=== PATIENT | female | born 1950 | race Caucasian/White ===

== ENCOUNTER 2019-09-13 16:15 | Inpatient (IN) ==
[2019-09-13 17:23] LABS: BASO# 0.02 X1000 (0.0-0.2); BASO% 0.2 % (0.0-0.8); EOS% 1.2 % (0.0-10.0); HEMATOCRIT 35.6 % (37.0-47.0); HEMOGLOBIN 12.4 g/dL (12.0-16.0); IMM GRAN# 0.04 X1000 (0.0-0.04); IMM GRAN% 0.5 % (0.0-0.5); LYMPH# 1.55 X1000 (1.2-3.4); LYMPH% 18.4 % (20.5-51.1); MCH 29.5 PG (27-31); MCHC 34.8 g/dL (33-37); MCV 84.6 FL (81-99); MONO# 0.61 X1000 (0.11-0.59); MONO% 7.2 % (1.7-9.3); MPV 9.6 FL (7.4-10.4); NEUT# 6.11 X1000 (1.4-6.5); NEUT% 72.5 % (42.2-75.2); PLT 370 X1000 (130-400); RBC 4.21 XMIL (4.2-5.4); RDW 14.1 % (11.5-14.5); WBC 8.43 X1000 (4.8-10.8)
[2019-09-13 17:48] LABS: ESTIMATED GFR > 60
[2019-09-13] MEDS ORDERED: NS 1,000 ML IV ONE (17:52)
[2019-09-13 17:55] LABS: AGAP 12; ALB/GLOB RATIO 1.5; ALBUMIN 3.9 g/dL (3.5-5.0); ALKALINE PHOSPHATASE 44 U/L (32-104); BUN 8 mg/dL (8-22); CALCIUM 9.1 mg/dL (8.8-10.2); CHLORIDE 84 mmol/L (98-107); COSMO 245; CREATININE 0.7 mg/dL (0.5-0.9); GLUCOSE 109 mg/dL (70-104); GOT 22 U/L (10-30); GPT 7 U/L (10-36); POTASSIUM 3.2 mmol/L (3.5-5.1); SODIUM 122 mmol/L (136-145); TCO2 26 mmol/L (25-35); TOTAL BILIRUBIN 0.71 mg/dL (0.20-1.00); TOTAL PROTEIN 6.5 g/dL (6.3-8.3)
[2019-09-13] MEDS ORDERED: TYLENOL PO PRN (18:22)
[2019-09-13] MEDS ORDERED: ZOFRAN IV PRN (18:22)
--- NOTE | 2019-09-13 18:25 | PROVIDER DOCUMENTATION ---
This chart was entered by Ramiro Vargas Scribe, acting as scribe for Lavon Castrejon MD. HPI-General Adult - General Chief Complaint: Abnormal Lab[s] Stated Complaint: SODIUM LOW Time Seen by Provider: 09/13/19 17:44 Source: patient Allergies/Adverse Reactions: Patient Allergies Allergy/AdvReac Type Severity Reaction Status Date / Time ciprofloxacin [From Cipro] Allergy Intermediate ITCHING Verified 12/08/17 16:49 Home Medications: Home Medication List Medication Instructions Recorded Confirmed Last Taken Type ATORVAstatin [Lipitor] 40 mg PO QHS 12/08/17 12/08/17 12/08/17 08:00 History Aspirin 325 mg PO DAILY 12/08/17 12/08/17 12/08/17 08:00 History Citalopram [Celexa] 20 mg PO DAILY 12/08/17 12/08/17 12/08/17 08:00 History Dronedarone [Multaq] 400 mg PO BID 12/08/17 12/08/17 12/08/17 08:00 History Fenofibrate 160 mg PO DAILY 12/08/17 12/08/17 12/08/17 08:00 History Metoprolol Succinate E.r. [Toprol 25 mg PO DAILY 12/08/17 12/08/17 12/08/17 08:00 History Xl] Ranitidine HCl [Zantac 75] 75 mg PO BID 12/08/17 12/08/17 12/08/17 08:00 History - History of Present Illness -Gen Adult Nature of Presenting Problems: Pt is a 69 yof who presents to the ED with a CC of abnormal labs. Pt reports she was referred to the ED by her PCP for low sodium and potassium. Pt also com plains of mild abdominal pain. Pt reports a hx of HTN, diabetes, and atrial fibrillation. Pt reports being a 1 ppd smoker. Location of Pain/Injury: reports: abdomen Pain Radiation: reports: no radiation Quality of Pain: reports: dull Severity: reports: mild Onset/Duration: reports: 1-3 hours ago Timing: reports: still present Similar Symptoms Previously?: No Recently seen or treated by another doctor?: No Review of Systems - Adult - REVIEW OF SYSTEMS - ADULT Constitutional: reports: see HPI Eyes: reports: no symptoms reported Ears, Nose, Mouth & Throat: reports: no symptoms reported Cardiovascular: reports: no symptoms reported Respiratory: reports: no symptoms reported Gastrointestinal: reports: see HPI, abdominal pain Genitourinary: reports: no symptoms reported Musculoskeletal: reports: no symptoms reported Integumentary: reports: no symptoms reported Neurological: reports: no symptoms reported Psychiatric: reports: no symptoms reported Endocrine: reports: see HPI Hematologic/Lymphatic: reports: no symptoms reported Allergic/Immunologic: reports: no symptoms reported All Other Systems: Reviewed and Negative Past History - Adult - PAST MEDICAL HISTORY-ADULT Review of Records: reports: Old Records Reviewed, Nursing Assessment Review, Medications Reviewed, Social history reviewed & non-contributory. Major Childhood Illnesses: reports: denies history Cardiovascular: reports: A-Fib, HTN Respiratory: reports: denies history Gastrointestinal: reports: denies history Obstetrical/Gynecological: reports: denies history Genitourinary: reports: denies history Musculoskeletal: reports: denies history Neurological: reports: denies history Endocrine/Immune: reports: Diabetes Other Conditions: reports: other cancer (basil cell) - PRIOR SURGERIES/PROCEDURES Surgical/Procedure History: reports: none - IMMUNIZATION STATUS Childhood Immunizations: See Nurse Assessment Flu Vaccine: See Nurse Assessment - FAMILY HISTORY Family History: reviewed, not pertinent - SOCIAL HISTORY Smoking: cigarettes, greater than 1 pack/day Substance Use: none/never, denies Alcohol Use Frequency: never Physical Exam-General - PHYSICAL EXAM-ADULT Initial Vital Signs Reviewed: Yes - CONSTITUTIONAL General Appearance: alert, mild distress - EYES Eyes: PERRL/EOMI - HEAD, EARS, NOSE, MOUTH & THROAT HENMT: normocephalic/atraumatic, moist mucous membranes - NECK Neck: non-tender, full range of motion - RESPIRATORY Respiratory: chest non-tender, lungs clear, normal breath sounds - CARDIOVASCULAR Cardiovascular: normal peripheral pulses, regular rate, rhythm - GASTROINTESTINAL (ABDOMEN) Abdominal Exam: non tender, soft - MUSCULOSKELETAL Extremity: normal range of motion, non-tender - SKIN Integumentary: normal color, warm/dry - NEUROLOGIC Neurologic: grossly normal, no motor/sensory deficits - PSYCHIATRIC Psych/Mental Status: normal mood/affect, normal thought content, normal thought process, oriented x 3 Progress - PLAN OF CARE/RESULTS Progress/Plan/Lab Results: Vital Signs - 8 hr 09/13/19 16:19 09/13/19 17:09 Temperature 97.6 F 97.9 F Pulse Rate 112 H 66 Respiratory Rate 18 Blood Pressure 108/69 O2 Sat by Pulse Oximetry 97 98 Laboratory Results - last 24 hr 09/13/19 09/13/19 17:11 17:11 WBC 8.43 RBC 4.21 Hgb 12.4 Hct 35.6 L MCV 84.6 MCH 29.5 MCHC 34.8 RDW Std Deviation 14.1 Plt Count 370 MPV 9.6 Immature Gran % (Auto) 0.5 Neut % (Auto) 72.5 Lymph % (Auto) 18.4 L [facility] % (Auto) 7.2 Eos % (Auto) 1.2 Baso % (Auto) 0.2 Immature Gran # (Auto) 0.04 Neut # (Auto) 6.11 Lymph # (Auto) 1.55 [facility] # (Auto) 0.61 H Eos # (Auto) 0.10 Baso # (Auto) 0.02 Estimated GFR/1.73 m2 > 60 Orders Category Date Time Status CBC WITH DIFF [HEME] Stat Lab 09/13/19 17:11 Completed CMP [COMPREHENSIVE METABOLIC PANEL] [CHEM] Stat Lab 09/13/19 17:11 Results Result Diagrams: 09/13/19 17:11 09/13/19 17:11 - CONSULTS/PCP/HOSPITALIST Notification #1 *Consult/PCP/Hospitalist*: Hospitalist Time Discussed: 18:15 Consult Disposition: Will see in ED, Admit Departure - Departure Date of Disposition Decision: 09/13/19 Time of Disposition Decision: 18:05 DIAGNOSIS: Hyponatremia, Tobacco abuse Disposition: ADMITTED INPATIENT 09 Certified Medical Emergency: Emergent Condition: Stable Additional Instructions: ED Follow Up Instructions: You have been treated by a care provider in the Emergency Department. These instructions are being provided to you so you can have an understanding of how to care for yourself upon discharge. Upon discharge from the Emergency Department, you are responsible for making arrangements for follow-up care by a physician of your choice. Take all prescribed medications as directed. Return to the Emergency Department immediately for any new or worsening symptoms. You may call the Physician Referral phone number at [phone] to obtain a list of Physicians who are taking new patients. Referrals and Follow-Ups: Lindsey Lantigua MD [Primary Care Provider] - - Critical Care Note This patient required my direct & personal management of CC.: No Attestation - Physician/ CHINO Attestation Patient care was provided by Advanced Practice Provider:: No The physician spent face to face time with patient:: Yes Advanced Practice Provider documentation review:: Supervising physician onsite and consulted in the evaluation and care of this patient. The physician did have a face to face encounter with the patient. This chart was documented by the indicated scribe, (Ramiro Vargas, Florin) and accurately reflects the services I performed and decisions made by me, Lavon Castrejon MD, as attested by the provider's signature.
[2019-09-13 18:37] LABS: URINE SOURCE CLEAN CATCH
[2019-09-13 18:42] LABS: BILIRUBIN URINE NEGATIVE (NEGATIVE); BLOOD URINE SMALL (NEGATIVE); COLOR YELLOW; GLUCOSE URINE NEGATIVE (NEGATIVE); KETONE URINE NEGATIVE (NEGATIVE); LEUKOCYTES URINE NEGATIVE (NEGATIVE); NITRITE URINE NEGATIVE (NEGATIVE); PH URINE 6.5; PROTEIN URINE TRACE mg/dL (NEGATIVE); SP GRAVITY URINE 1.013; TURBIDITY URINE CLEAR (CLEAR); UROBILINOGEN URINE 8 mg/dL (NORMAL)
[2019-09-13 18:46] LABS: UR EPITHELIAL CELLS <10 /HPF (<10); URINE BACTERIA NEGATIVE /HPF; URINE RBC <10 /HPF (<10); URINE WBC <10 /HPF (<10)
[2019-09-13 18:51] LABS: URINE CASTS NONE SEEN; URINE CRYSTALS NONE SEEN; URINE SMALL ROUND CELLS NONE SEEN; URINE YEAST NONE SEEN
--- NOTE | 2019-09-13 19:31 | HISTORY AND PHYSICAL ---
PRIMARY CARE PROVIDER: Lindsey Lantigua M.D. CHIEF COMPLAINT: Low sodium reported by her primary care provider. HISTORY OF PRESENT ILLNESS: Ms. Thelma Barraza is a 69-year-old female with a medical history of GERD, large hiatal hernia and failed Vianca fundoplication, chronic atrial fibrillation but is sinus rhythm, has been on Multaq and aspirin, COPD, hypertension, diabetes mellitus type 2, and chronic hyponatremia. She had an admission back in November of 2017 with the same thing, was sent from her primary care provider at that time. She also had hypo osmolality, but those have been ordered and not resulted yet. There is a possibility that this could be aggravated by her Celexa or her COPD. She has not had a CT of the lungs so we will order that as well. She will be on fluid restrictions for now. No IV fluids. PAST MEDICAL HISTORY: 1. Chronic hyponatremia. 2. Chronic atrial fibrillation but has been in sinus rhythm on Multaq and aspirin. 3. COPD. 4. Hiatal hernia with failed Vianca fundoplication. 5. GERD. 6. Hypertension. 7. Mnire disease. 8. Obstructive sleep apnea without CPAP. 9. Restless legs syndrome. 10. Diabetes mellitus type 2 with stable hemoglobin A1c. 11. Hypertriglyceridemia. SURGICAL HISTORY: 1. Hysterectomy. 2. Lower back surgery. 3. Bladder tack x2. 4. Right ankle surgery. 5. Cholecystectomy. 6. Bilateral cataracts. 7. Skin cancer removed from the nose. 8. History of failed Vianca fundoplication. SOCIAL HISTORY: Smoking since the age of 17 at least 1 pack per day. Denies alcohol or illicit drug use. Lives at home with her of 55 years. FAMILY HISTORY: Mother had pulmonary emboli, diabetes and heart disease. Father had liver cancer and diabetes. Three brothers with myocardial infarctions and stroke. One sister with heart disease and esophageal cancer. ALLERGIES: Ciprofloxacin. HOME MEDICATIONS: 1. Lipitor 40 mg p.o. nightly. 2. Aspirin 325 mg p.o. daily. 3. Celexa 20 mg p.o. daily. 4. Fenofibrate 160 mg p.o. daily. 5. Multaq 40 mg p.o. twice daily. 6. Prilosec 20 mg p.o. daily. 7. Toprol-XL 25 mg p.o. daily. It also looks like she had a brain MRI without contrast that was ordered as an outpatient thing today. It was not performed. REVIEW OF SYSTEMS: Fourteen-point review of systems are complete. All were negative except for those mentioned above in HPI. I will add that she has noticed over the last 2 months she has had worsening memory issues where she would name her grandkids different names that was not even a family name. She felt like when she was at [employer] one time everything been changed around. Her grocery store that she knows very well she could not figure out how the store was laid out. She has occasional dizziness and she also noted that she has had some blood-tinged phlegm and occasionally blows out clots when she blows her nose. She stays cold all the time. She did state that she has been drinking at least a quart or more of fluids per day, not necessarily water, but just drinks, but her mouth stays dry. PHYSICAL EXAMINATION: VITAL SIGNS: Temperature 97.9 degrees, heart rate 60, respiratory rate 15, blood pressure 146/86, O2 saturation 100% on room air. GENERAL: Ms. Thelma Barraza is a 69-year-old female. She is in no acute distress. She is able answer questions appropriately. HEENT: Atraumatic, normocephalic. Pupils equal, round, reactive to light. Extraocular movements intact. Mucous membranes are dry. NECK: Trachea midline. CARDIOVASCULAR: S1, S2. Regular rate and rhythm. No rubs, gallops, murmurs. No lower extremity edema. +2 dorsalis and radial pulses. Negative JVD or carotid bruits. PULMONARY: Clear to auscultation bilateral breath sounds. No accessory muscle use or work of breathing noted. GASTROINTESTINAL: Soft, nontender, nondistended. Positive bowel sounds x4. EXTREMITIES: Moves all extremities equally. Full range of motion. NEUROLOGIC: A and O x3. Follows commands. Sensory is intact. SKIN: Warm, dry, intact. LABORATORY DATA: White blood cells 8000, hemoglobin 12, hematocrit 35, platelet count 370,000. Sodium 122, potassium 3.2, BUN 8, creatinine 0.7, glucose 109, calcium 9.1, magnesium 1.5, bilirubin 0.71, AST 22, ALT 7, albumin 3.9. Urinalysis is pending. Other urine studies are pending. IMAGING: No imaging at this time. ASSESSMENT AND PLAN: 1. Hyponatremia with a history of hyponatremia and hypoosmolality, and I believe she has been ruled out for syndrome of inappropriate antidiuretic hormone secretion in the past. She will have a chest CT this time. She does have some blood-tinged phlegm that she states she coughs up occasionally. Denies any shortness of breath or weight loss. There are really no other complaints. Has the occasional dizziness. She has had some memory deficits over the last 2 months that she has noticed. It is not significant but just intermittently so we will hold on her Celexa as it could be related to that. It could be as a complication of her chronic obstructive pulmonary disease history, but again, we will get a CT of the chest to fully evaluate, make sure there is nothing going on there. 2. History of atrial fibrillation. She is in sinus rhythm. We will continue Multaq and aspirin once she gets her home medications verified. 3. Chronic obstructive pulmonary disease, no exacerbation. 4. Gastrointestinal reflux disease with hiatal hernia and failed Vianca fundoplication. We will continue her proton pump inhibitor when it is reconciled. 5. Anxiety. Hold the Celexa. 6. Diabetes mellitus type 2. Her last hemoglobin A1c was 5.8. Her glucose at this time is 109, and it really looks like her blood glucose levels were normal, so we are just going to do a regular diet and no insulin at this time unless we see her blood glucose levels start to increase. As far as reviewing her home medications, it looks like she is really not on anything for diabetes. 7. Hypertriglyceridemia. Continue fenofibrate. 8. Deep venous thrombosis prophylaxis. Sequential compression devices. Dictated by SANCHEZ Smart for Breezy Bowles MD cc: SANCHEZ Smart Patient sent to the ED by her PCP for worsening of her chronic hyponatremia. patient appears to usually be in the high 120s but down to 122 today. essentially asymptomatic. will fluid restrict, check urine studies, and CT chest to eval for malignancy vs other etiology. hold antidepressant as it could be causing SIADH. MTDD
[2019-09-13] MEDS: MULTAQ PO SCH (22:25)
[2019-09-14] MEDS: LIPITOR PO SCH ×2 (00:37→20:36)
[2019-09-14 06:37] LABS: BASO# 0.02 X1000 (0.0-0.2); BASO% 0.3 % (0.0-0.8); EOS# 0.12 X1000 (0.0-0.7); EOS% 1.8 % (0.0-10.0); HEMATOCRIT 34.4 % (37.0-47.0); HEMOGLOBIN 11.8 g/dL (12.0-16.0); IMM GRAN# 0.02 X1000 (0.0-0.04); IMM GRAN% 0.3 % (0.0-0.5); LYMPH# 1.62 X1000 (1.2-3.4); LYMPH% 24.2 % (20.5-51.1); MCH 29.1 PG (27-31); MCHC 34.3 g/dL (33-37); MCV 84.7 FL (81-99); MONO# 0.67 X1000 (0.11-0.59); MPV 9.7 FL (7.4-10.4); NEUT# 4.25 X1000 (1.4-6.5); NEUT% 63.4 % (42.2-75.2); PLT 331 X1000 (130-400); RBC 4.06 XMIL (4.2-5.4); RDW 13.9 % (11.5-14.5)
[2019-09-14 07:05] LABS: AGAP 14; ALB/GLOB RATIO 1.4; ALBUMIN 3.3 g/dL (3.5-5.0); ALKALINE PHOSPHATASE 38 U/L (32-104); BUN 6 mg/dL (8-22); CALCIUM 8.8 mg/dL (8.8-10.2); CHLORIDE 91 mmol/L (98-107); COSMO 256; CREATININE 0.6 mg/dL (0.5-0.9); ESTIMATED GFR > 60; GLUCOSE 84 mg/dL (70-104); GOT 20 U/L (10-30); GPT 6 U/L (10-36); MAGNESIUM 1.5 mg/dL (1.5-2.7); POTASSIUM 3.2 mmol/L (3.5-5.1); SODIUM 129 mmol/L (136-145); TCO2 24 mmol/L (25-35); TOTAL BILIRUBIN 0.74 mg/dL (0.20-1.00); TOTAL PROTEIN 5.6 g/dL (6.3-8.3)
--- NOTE | 2019-09-14 10:10 | Diag Imaging Result Doc PS360 ---
EXAM: CT THORAX W/CONTRAST HISTORY: Hyponatremia,blood tinged phlegm TECHNIQUE: CT chest with intravenous contrast. COMPARISON: None. FINDINGS: There is a large mass/adenopathy behind the heart measuring at least 7 x 10 x 11 cm. The esophagus is displaced to the left. There are enlarged subcarinal lymph nodes. The mass surrounds and occludes several branches of the right middle and lower lobe bronchial tree. No significant postobstructive atelectasis or infiltrates. Moderate emphysema. No cardiomegaly. No aortic aneurysm or dissection. No large central pulmonary emboli. Tiny right pleural effusion. No left pleural effusion. Limited images through the upper abdomen reveal a nonobstructing right renal stone. IMPRESSION: Large posterior mediastinal mass. A preliminary report was given at 12:26 AM This exam was performed using automated exposure control, adjustment of mA or kV according to patient size, and/or use of iterative reconstruction technique. Electronically signed by Steve Davidson 09/14/2019 10:07 AM
[2019-09-14] MEDS: MULTAQ PO SCH ×2 (10:23→20:37)
[2019-09-14] MEDS: TOPROL XL PO SCH (10:23)
[2019-09-14] MEDS: PRILOSEC PO SCH (10:24)
[2019-09-14] MEDS: LOFIBRA PO SCH (10:24)
[2019-09-14] MEDS: ASPIRIN PO SCH (10:24)
[2019-09-14] MEDS ORDERED: DUONEB (A & A) INH PRN (11:47)
--- NOTE | 2019-09-14 12:03 | PROGRESS NOTE ---
DATE: 09/14/2019 SUBJECTIVE: The patient is resting in bed, not in any obvious distress. OBJECTIVE: Vital Signs: Temperature is 97.6 degrees, pulse 61, blood pressure 153/83, respiratory rate is 14. HEENT: She is atraumatic, normocephalic. She is anicteric. Extraocular muscles intact. No oral lesions. Neck: No lymphadenopathy or thyromegaly. Cardiovascular: S1, S2. Respiratory: Has evidence of good air entry bilaterally. Abdomen: Soft, nontender. No masses felt. Extremities: No evidence of edema. Central Nervous System: No obvious focal deficit noted. IMAGING AND LABORATORY DATA: WBC is 6.7, hematocrit is 34.4, with a platelet count of 331,000. Sodium is 129, potassium 3.2, chloride is 91, bicarb 24, BUN is 6, creatinine 0.6. CT scan of the chest shows a large posterior mediastinal mass measuring about 7 x 10 x 11 cm. There is also a right renal nonobstructing stone. ASSESSMENT AND PLAN: 1. Hyponatremia, probably secondary to syndrome of inappropriate secretion of ADH, which is related to selective serotonin reuptake inhibitors. I believe the patient's selective serotonin reuptake inhibitors is currently discontinued. The patient's sodium level has risen from 122 to 129. The patient will need to be on fluid restriction as well as intravenous fluids. Will also check urine electrolytes, including urine sodium osmolality as well as creatinine. Will check a cortisol level and also TSH level. The patient will also need brain imaging. Will closely follow up on the patient's sodium level. 2. Mediastinal mass. This was noted on chest CT. Will consult with Cardiothoracic team. 3. Nonobstructing right renal stone. The patient does not seem to have any symptoms from this condition. She can follow up with Urology in the outpatient. 4. History of atrial fibrillation. Continue Multaq as well as aspirin. 5. Chronic obstructive pulmonary disease. Nebulized bronchodilators as needed. 6. Gastroesophageal reflux disease. Continue proton pump inhibitor. 7. History of anxiety disorder. Will hold off on Celexa in light of hyponatremia. 8. Diabetes mellitus. Monitor blood sugar levels, and maintain the patient on sliding scale insulin. 9. Hypertriglyceridemia. Continue fenofibrate. 10. Deep vein thrombosis prophylaxis. Sequential compression devices. cc: Hari Golden MD
[2019-09-14] MEDS: NS 1,000 ML IV SCH (13:16)
[2019-09-14] MEDS: DUONEB (A & A) INH SCH ×4 (15:52→23:48)
--- NOTE | 2019-09-14 22:11 | Diag Imaging Result Doc PS360 ---
EXAM: CT HEAD W/O CONTRAST HISTORY: right sided weakness TECHNIQUE: CT head without contrast COMPARISON: None. FINDINGS: No parenchymal hemorrhage. No epidural or subdural hematoma. No subarachnoid hemorrhage. There is a 1.6 x 2.3 cm hypodense area in the left temporal lobe. No mass identified on this noncontrasted exam. No hydrocephalus. No sinus opacification. IMPRESSION: 1.No hemorrhage 2.Likely subacute left temporal infarct This exam was performed using automated exposure control, adjustment of mA or kV according to patient size, and/or use of iterative reconstruction technique. Electronically signed by Steve Davidson 09/14/2019 10:08 PM
[2019-09-15] MEDS: DUONEB (A & A) INH SCH ×6 (03:21→23:26)
[2019-09-15] MEDS: NS 1,000 ML IV SCH ×2 (05:42→22:22)
[2019-09-15 07:59] LABS: BASO# 0.02 X1000 (0.0-0.2); BASO% 0.2 % (0.0-0.8); EOS# 0.06 X1000 (0.0-0.7); EOS% 0.7 % (0.0-10.0); HEMATOCRIT 32.8 % (37.0-47.0); HEMOGLOBIN 11.1 g/dL (12.0-16.0); IMM GRAN# 0.02 X1000 (0.0-0.04); IMM GRAN% 0.2 % (0.0-0.5); LYMPH# 1.33 X1000 (1.2-3.4); LYMPH% 14.6 % (20.5-51.1); MCH 28.9 PG (27-31); MCHC 33.8 g/dL (33-37); MCV 85.4 FL (81-99); MONO# 0.72 X1000 (0.11-0.59); MONO% 7.9 % (1.7-9.3); MPV 10.4 FL (7.4-10.4); NEUT# 6.96 X1000 (1.4-6.5); NEUT% 76.4 % (42.2-75.2); PLT 305 X1000 (130-400); RBC 3.84 XMIL (4.2-5.4); RDW 14.1 % (11.5-14.5); WBC 9.11 X1000 (4.8-10.8)
[2019-09-15 08:15] LABS: AGAP 13; ALB/GLOB RATIO 1.5; ALBUMIN 3.4 g/dL (3.5-5.0); ALKALINE PHOSPHATASE 37 U/L (32-104); BUN 6 mg/dL (8-22); CALCIUM 8.7 mg/dL (8.8-10.2); CHLORIDE 90 mmol/L (98-107); COSMO 255; CREATININE 0.6 mg/dL (0.5-0.9); ESTIMATED GFR > 60; GLUCOSE 97 mg/dL (70-104); GOT 19 U/L (10-30); GPT 6 U/L (10-36); MAGNESIUM 1.5 mg/dL (1.5-2.7); POTASSIUM 3.1 mmol/L (3.5-5.1); SODIUM 128 mmol/L (136-145); TCO2 25 mmol/L (25-35); TOTAL BILIRUBIN 0.73 mg/dL (0.20-1.00); TOTAL PROTEIN 5.7 g/dL (6.3-8.3)
[2019-09-15] MEDS: TOPROL XL PO SCH (09:25)
[2019-09-15] MEDS: PRILOSEC PO SCH (09:25)
[2019-09-15] MEDS: LOFIBRA PO SCH (09:25)
[2019-09-15] MEDS: ASPIRIN PO SCH (09:25)
[2019-09-15] MEDS: MULTAQ PO SCH ×2 (09:25→22:23)
[2019-09-15] MEDS ORDERED: XANAX PO ONE (09:34)
--- NOTE | 2019-09-15 12:00 | CONSULTATION ---
DATE OF CONSULTATION: 09/15/2019 HISTORY OF PRESENT ILLNESS: Ms Thelma Barraza is a 69-year-old white female, patient of Dr. Lindsey Santana. It was noticed that she had significant electrolyte abnormalities, and she was sent to our emergency department on 09/13/2019 for further evaluation. As part of her evaluation, she underwent a chest CT scan, which documented a large posterior mediastinal mass consistent with a lung cancer measuring 11 cm. It seems to involve the right middle and lower lobes. She has admitted to hemoptysis recently. She is a smoker. There was no mention of any liver lesions. She does have emphysema and mild shortness of breath. PAST MEDICAL HISTORY: Atrial fibrillation on Multaq and aspirin. She used to be on Eliquis, but is not taking it now. COPD, Vianca fundoplication, hypertension, diabetes mellitus type 2, hypertriglyceridemia, restless legs syndrome. PAST SURGICAL HISTORY: Hysterectomy, lower back surgery, bladder tack, right ankle surgery, cholecystectomy bilateral cataracts, skin cancer removed from her nose, and Vianca fundoplication. MEDICATIONS: Lipitor, aspirin, Celexa, fenofibrate, Multaq, Prilosec, Toprol-XL. SOCIAL HISTORY: She smokes since she is 17 years of age. Her and family were at the bedside. FAMILY HISTORY: Diabetes, heart disease, liver cancer, esophageal cancer. REVIEW OF SYSTEMS: She feels like her memory is worse over the last 2 months. She has had occasional dizziness. She does admit to some hemoptysis, and she stays cold all the time. PHYSICAL EXAMINATION: General: On exam, Ms. Barraza is a very slim, older white female, getting a breathing treatment. She has mild work of breathing. HEENT and Neck: She has no jaundice. No oral lesions. No cervical or supraclavicular lymphadenopathy. Cardiac: Her heart is irregular. Lungs: Have some expiratory wheezing. Abdomen: Soft without palpable mass. No costovertebral tenderness. Rectal and Vaginal: Exams were not performed. Extremities: She does have palpable femoral pulses. She has no peripheral ischemic changes. Neurological: She has no focal deficits. IMPRESSION: Large posterior mediastinal mass, which seems to involve the right middle and lower lobes of the lung in a chronic smoker. PLAN: Bronchoscopy with biopsy. I do notice that Dr. Mclean was consulted yesterday, and Pulmonary has also been consulted. I will make plans to do this bronchoscopy tomorrow unless Pulmonary wants to proceed. cc: Fabiana Velasquez MD
--- NOTE | 2019-09-15 14:27 | PROGRESS NOTE ---
DATE: 09/15/2019 SUBJECTIVE: Patient resting comfortably in bed. OBJECTIVE: Vital Signs: Temperature 97.8 degrees, pulse 72, respirations 14, blood pressure is 130/79, oxygen saturation 98%. HEENT: Atraumatic, normocephalic. Cardiovascular: S1, S2. Respiratory: Has evidence of good air entry bilaterally. Abdomen: Soft, nontender. No masses felt. Extremities: No evidence of edema. Central Nervous System: No obvious focal deficits noted. IMAGING AND LABORATORY DATA: WBC is 9.11, hematocrit 32.8, with a platelet count of 305,000. Sodium is 128, potassium 3.1, chloride is 90, bicarb 25, BUN is 6, creatinine 0.6. CT scan of the brain shows evidence of likely subacute left temporal infarct. ASSESSMENT AND PLAN: 1. Hyponatremia, likely secondary to syndrome of inappropriate secretion of ADH related to selective serotonin reuptake inhibitors. Sodium level has improved. Continue intravenous normal saline as well as fluid restriction. 2. Probable left temporal lobe cerebrovascular accident. Will obtain an MRI of the brain, carotid Doppler study, 2D echo of the heart. We will hold off on aspirin as the patient is likely to be going for a bronchoscopy. Check lipid panel. Educate the patient on stroke. Place the patient on Lovenox 40 subcutaneously once a day. 3. Mediastinal mass. The patient will probably need bronchoscopy with biopsy (transbronchial biopsy). Surgery and Pulmonology team, as well as Oncology team consulted. 4. Nonobstructing right renal mass. Follow up with Urology in the outpatient. 5. History of atrial fibrillation. Continue multaq and will hold off on aspirin for right now. 6. Chronic obstructive pulmonary disease. Nebulized bronchodilators as needed. 7. Gastroesophageal reflux disease. Continue proton pump inhibitor. 8. History of anxiety disorder. Will discontinue Celexa, and place the patient on a different agent for anxiety. 9. Diabetes mellitus. Continue blood sugar monitoring as well as sliding scale insulin. 10. Hypertriglyceridemia. Continue fenofibrate. 11. Deep vein thrombosis prophylaxis. Lovenox. cc: Hari Golden MD [facility]
--- NOTE | 2019-09-15 16:04 | Diag Imaging Result Doc PS360 ---
EXAM: MRI BRAIN W/O CONTRAST INDICATION: cva COMPARISON: CT head dated 09/14/2019. No prior MRI brain is available for comparison. FINDINGS: There is a complex cystic appearing lesion in the insula on the left that was also seen on the recent CT. There is no internal restricted diffusion. Although there is mild restricted diffusion at its periphery, I suspect this is a metastatic lesion with central necrosis rather than an infarct. It measures 2.8 x 2.1 cm axially. There is a second lesion that is T2/FLAIR hyperintensity in the left cerebellar hemisphere abutting the fourth ventricle. It exhibits increased signal on diffusion with only mild decreased signal on ADC map. This is also likely a metastatic lesion. It measures 1.1 x 1.0 cm axially. There is relatively little vasogenic edema surrounding these lesions, however. Addition of IV contrast and rescanning is recommended within 24 hours if not contraindicated to better evaluate these lesions. No other definite lesion is identified given the limitations of a nonenhanced study. There is mild patchy T2/FLAIR hyperintensity in the periventricular and subcortical white matter suggesting mild microangiopathy. No discrete intracranial hemorrhage is appreciated. The surrounding soft tissues and bony structures are essentially unremarkable. IMPRESSION: Findings suspicious for metastatic lesions in the insular region on the left and the left cerebellar hemisphere. Addition of IV contrast and rescanning is recommended within 24 hours if not contraindicated for better evaluation. Please see above discussion. Electronically signed by Adryan Banerjee 09/15/2019 4:01 PM
--- NOTE | 2019-09-15 17:24 | HEMO/ONC CONSULTATION ---
DATE: 09/15/2019 REASON FOR CONSULTATION: Mediastinal mass. HISTORY OF PRESENT ILLNESS: Ms. Barraza is a 69-year-old female who presented to the ED by her primary care doctor for low sodium and potassium. The patient also complained of abdominal pain, and she was admitted for further workup. She has been admitted for the same thing in the past. The patient is also a smoker, has smoked 1 pack a day for over 50 years. She has had a recent bout of confusion per family members and worsening memory issues. Her family states that she drinks at least a quart or more of fluids a day, as she states that her mouth stays dry. PAST MEDICAL HISTORY: 1. Chronic hyponatremia. 2. Chronic atrial fibrillation on Multaq and aspirin. 3. COPD. 4. Hiatal hernia with failed Vianca fundoplication. 5. GERD. 6. Hypertension. 7. Meniere disease. 8. Obstructive sleep apnea without CPAP. 9. Restless legs syndrome. 10. Diabetes mellitus type 2. 11. Hypertriglyceridemia. PAST SURGICAL HISTORY: 1. Hysterectomy. 2. Low back surgery. 3. Bladder tack x2. 4. Right ankle surgery. 5. Cholecystectomy. 6. Bilateral cataracts. 7. Skin cancer removed from the nose. 8. History of failed Vianca fundoplication. SOCIAL HISTORY: The patient has smoked at least 1 pack a day for greater than 50 years. Denies alcohol or illicit drug use. ALLERGIES: Ciprofloxacin. HOME MEDICATION: Lipitor, aspirin, Celexa, fenofibrate, Multaq, Prilosec, Toprol-XL. REVIEW OF SYSTEMS: This morning, the patient had no complaints. She states she has some back pain from the bed. Otherwise, pertinent positives were noted in the HPI. PHYSICAL EXAMINATION: Vital Signs: Temperature 97.8 degrees, pulse rate 72, respiratory rate 18, blood pressure 130/79, and O2 saturation 98% on room air. She is in 0/10 pain. General: Patient is in no acute distress. HEENT: Sclerae is anicteric. PERRLA. Oral mucosa is slightly dry. Cardiovascular: Normal S1, S2. Regular heart rate and rhythm. No murmurs noted. Respiratory: Lung sounds are clear to auscultation. Normal respiratory effort. Gastrointestinal: Abdomen is soft, nontender, nondistended. Bowel sounds are positive. Extremities: Patient has no lower extremity edema. Able to move all 4 extremities at will. She has full range of motion. Neurological: Alert and oriented x3. Follows commands. No focal motor deficits are noted. LABORATORY DATA: WBCs 9.11, hemoglobin 11.1, hematocrit 32.8, platelet count 305,000, ANC 6.96. Sodium 128, potassium 3.1, calcium 8.7. RADIOLOGY: Chest CT, large posterior mediastinal mass. Head CT, no hemorrhage, likely subacute left temporal infarct. Brain MRI findings are suspicious for metastatic lesion in the insular region on the left in the left cerebellar hemisphere. Rescanning with IV contrast is recommended. ASSESSMENT: 1. Mediastinal mass. 2. Hyponatremia. 3. Deep venous thrombosis prophylaxis. 4. Nutrition and exercise. PLAN: Pulmonology has been consulted. We will need tissue biopsy. The patient will also require an outpatient PET scan. We will evaluate the patient in our office as an outpatient after discharge. The patient should be able to get up to move about as needed. She has on SCDs, as well as Lovenox for deep venous thrombosis prophylaxis. The patient needs protein shakes when she is able to eat. I understand she is going to have a bronchoscopy tomorrow, so resume protein shakes after that procedure. She will also need to be working on her strength. We will continue to monitor and follow the patient closely. Dictated by SANCHEZ Liu for Nito Renee MD Patient seen and examined. As above. Patient admitted with large mediastinal mass. Proceed with bronchoscopy and biopsy. Brain scan without contrast is suspicious for a brain metastasis. Plan to repeat MRI with contrast. I will continue to follow with you. Nito Renee M.D. cc: Nito Renee MD [facility]
[2019-09-15] MEDS: LIPITOR PO SCH (22:23)
[2019-09-15] MEDS: BUSPAR PO SCH (22:23)
[2019-09-16] MEDS: DUONEB (A & A) INH SCH ×6 (03:35→23:40)
[2019-09-16 07:27] LABS: BASO# 0.01 X1000 (0.0-0.2); BASO% 0.1 % (0.0-0.8); EOS# 0.13 X1000 (0.0-0.7); EOS% 1.5 % (0.0-10.0); HEMATOCRIT 33.9 % (37.0-47.0); HEMOGLOBIN 11.5 g/dL (12.0-16.0); IMM GRAN# 0.03 X1000 (0.0-0.04); IMM GRAN% 0.3 % (0.0-0.5); LYMPH% 10.3 % (20.5-51.1); MCHC 33.9 g/dL (33-37); MCV 85.4 FL (81-99); MONO# 0.56 X1000 (0.11-0.59); MONO% 6.4 % (1.7-9.3); MPV 10.3 FL (7.4-10.4); NEUT# 7.13 X1000 (1.4-6.5); NEUT% 81.4 % (42.2-75.2); PLT 287 X1000 (130-400); RBC 3.97 XMIL (4.2-5.4); RDW 14.1 % (11.5-14.5); WBC 8.76 X1000 (4.8-10.8)
[2019-09-16] MEDS ORDERED: EPINEPHRINE ONE (07:28)
[2019-09-16] MEDS ORDERED: XYLOCAINE 2% ONE (07:29)
[2019-09-16] MEDS ORDERED: SODIUM CHLORIDE 0.9% 20 ML ONE (07:29)
[2019-09-16] MEDS ORDERED: XYLOCAINE 2% VISCOUS ONE (07:29)
[2019-09-16 07:41] LABS: AGAP 11; ALB/GLOB RATIO 1.5; ALBUMIN 3.4 g/dL (3.5-5.0); ALKALINE PHOSPHATASE 37 U/L (32-104); BUN 5 mg/dL (8-22); CALCIUM 8.6 mg/dL (8.8-10.2); CHLORIDE 92 mmol/L (98-107); COSMO 254; CREATININE 0.5 mg/dL (0.5-0.9); ESTIMATED GFR > 60; GLUCOSE 92 mg/dL (70-104); GOT 21 U/L (10-30); GPT 7 U/L (10-36); MAGNESIUM 1.4 mg/dL (1.5-2.7); POTASSIUM 3.5 mmol/L (3.5-5.1); SODIUM 128 mmol/L (136-145); TCO2 25 mmol/L (25-35); TOTAL BILIRUBIN 1.03 mg/dL (0.20-1.00); TOTAL PROTEIN 5.6 g/dL (6.3-8.3)
[2019-09-16 07:51] LABS: CHOLESTEROL 58 mg/dL (0-200); HDL 35 mg/dL (45-65); LDL 13 mg/dL; TRIGLYCERIDES 49 mg/dL (35-135); VLDL 10 mg/dL
[2019-09-16] MEDS ORDERED: DIPRIVAN 1% ONE (08:17)
[2019-09-16] MEDS ORDERED: XYLOCAINE-MPF 2% ONE (08:17)
[2019-09-16] MEDS ORDERED: QUELICIN (DOSE) ONE (08:17)
[2019-09-16] MEDS ORDERED: EPHEDRINE ONE (09:12)
--- NOTE | 2019-09-16 10:56 | OPERATIVE NOTE ---
PROCEDURE DATE: 09/16/2019 INDICATIONS FOR PROCEDURE: Ms. Thelma Barraza is a 69-year-old white female who was hospitalized with electrolyte abnormalities, and a chest x-ray was abnormal. Chest CT scan documented a large posterior mass, posterior mediastinal mass, which was felt to be involving some of the lower lung bronchi. For diagnosis, bronchoscope bronchoscopy was recommended. DESCRIPTION OF PROCEDURE: The patient was brought to the operating room, placed supine, received general anesthesia, was intubated. I placed a bronchoscope through the endotracheal tube, and the nic appeared to be sharp. Left mainstem bronchus and the upper and lower lobe bronchi appeared to be normal. On evaluating the right side, the upper lobe bronchus appeared to be normal. There was some distortion involving the middle and lower lobes. There appeared to be some abnormal nodularity involving the proximal lower lobe bronchi, and multiple biopsies, brushings, and then a mucus trap was used for biopsies of this area. We felt we had good representation of the lower lobe nodules, and hopefully this will give us a diagnosis. We removed a lot of mucus in this area. There did not appear to be any collapsed middle or lower lobe bronchi. The patient tolerated the procedure well. Plans are for her to be extubated and go to the recovery room and then return to the floor. We will wait for pathology. cc: Fabiana Velasquez MD
[2019-09-16] MEDS: TOPROL XL PO SCH (11:05)
[2019-09-16] MEDS: BUSPAR PO SCH ×3 (11:05→21:48)
[2019-09-16] MEDS: MULTAQ PO SCH ×3 (11:05→21:48)
[2019-09-16] MEDS: LOFIBRA PO SCH (11:06)
[2019-09-16] MEDS: PRILOSEC PO SCH (11:06)
[2019-09-16] MEDS: LOVENOX SUBQ SCH (11:06)
[2019-09-16] MEDS: NS 1,000 ML IV SCH (12:00)
--- NOTE | 2019-09-16 13:03 | ECHO REPORT ---
ORDER DATE: 09/15/2019 INDICATIONS: CVA. FINDINGS: 1. Right atrium appears normal in size. 2. Mild tricuspid regurgitation. RV systolic pressure 26. 3. Normal RV size and systolic function. 4. Mild pulmonic insufficiency. 5. Mild left atrial enlargement with a dimension of 4.6 cm. 6. No mitral prolapse. Mild mitral regurgitation. No mitral stenosis. 7. Normal LV size, end-diastolic dimension of 3.2 cm. Mild left ventricular hypertrophy with a posterior and interventricular septal wall thickness of 1.3 and 1.2 cm respectively. Normal LV systolic function. Calculated EF of 58% with normal wall motion. The aortic valve appears to open well. It is sclerotic but not stenotic. The valve is trileaflet. No insufficiency. 8. Aorta appears normal in visualized segments. 9. No pericardial effusion seen. cc: MD Hari Chris MD
--- NOTE | 2019-09-16 13:59 | Diag Imaging Result Doc PS360 ---
EXAM: MRI BRAIN W/CONTRAST 09/16/2019 HISTORY: Later today TECHNIQUE: T1 axial post contrast with coronal reformation. COMMENT: The current examination is correlated with the study performed yesterday which was done without contrast. There is some ring enhancement associated with the lesion demonstrated in the left cerebellar hemisphere on the previous exam. There is also enhancement in the wall of the cystic lesion which was demonstrated in the insula on the previous study. IMPRESSION: Metastatic disease in the left insula and cerebellum. Electronically signed by Maximus Sanchez 09/16/2019 1:57 PM
--- NOTE | 2019-09-16 18:09 | PROGRESS NOTE ---
DATE: 09/16/2019 INTERVAL HISTORY: Patient is status post bronchoscopy this morning, doing well afterwards. Reports a little bit of nonproductive cough, but no other issues. REVIEW OF SYSTEMS: Twelve point review of systems negative except as per interval history. LABORATORY DATA: WBC 8.76, hemoglobin 11.5, hematocrit 33.9, platelets 287,000. Sodium 128, potassium 3.5, BUN 5, creatinine 0.5, bilirubin 1.0. VITALS: T-max 98.2 degrees, pulse 67, respirations 18, blood pressure 110/73. O2 saturation 100% on 2 L by nasal cannula. PHYSICAL EXAMINATION: General: No acute distress. Vitals: As above. HEENT: Normocephalic, atraumatic. Cardiovascular: Regular rate and rhythm. No murmurs noted. Pulmonary: Reasonable air entry bilaterally. No increased work of breathing or accessory muscle use. Abdomen: Soft, nontender, nondistended. Bowel sounds positive. Extremities: Peripheral pulses intact. No clubbing or cyanosis. Neurologic: Cranial nerves grossly intact mild global weakness but no focal deficits. Psychiatric: Normal mood and affect. Awake, alert, oriented x3. ASSESSMENT AND PLAN: 1. Likely lung cancer with brain metastasis. The patient is status post bronchoscopy with biopsy today. Doing well post procedure. Recheck chest x-ray in the morning to make sure there is no pneumothorax. If that looks good, then she can likely go home with home health tomorrow to follow up with PCP and Oncology. 2. Likely brain metastasis. Initially, there was concern for stroke based on CT, but MRI shows there is more likely metastasis of her malignancy. Monitor. As it does not appear the patient had a stroke will not start aspirin. 3. Chronic hyponatremia slightly worsened on admission but pretty much back to where she lives now. Likely related to malignancy. Doing pretty well. Monitor. 4. Chronic obstructive pulmonary disease. No sign of exacerbation at this time. 5. Paroxysmal atrial fibrillation. Has been largely in normal sinus rhythm. 6. Gastroesophageal reflux disease. Continue proton pump inhibitors. 7. Hypertension reasonable control, so far. 8. Disposition. I did discuss the possibility of rehab with patient, but she strongly prefers to go home. Has good family support. Likely home tomorrow with home health if she continues to do well and her chest x-ray in the morning does not show any sign of postprocedure pneumothorax.
--- NOTE | 2019-09-16 18:15 | HEMO/ONC PROGRESS NOTE ---
DATE: 09/16/2019 SUBJECTIVE: When I saw Ms. Barraza this morning, she was preparing to go to her bronchoscopy. She was feeling quite well. She had no complaints. She states she had a good night's rest. She denied any pain. OBJECTIVE: vital signs: Temperature 98.2 degrees, pulse rate 84, respiratory rate 18, blood pressure 110/73, O2 saturation 100% on nasal cannula at 2 L. She is in 0/10 pain. General: The patient is in no acute distress. HEENT: Sclerae is anicteric. PERRLA. Oral mucosa is slightly dry. Cardiovascular: Normal S1, S2. Heart rate and rhythm is regular. No murmurs noted. Respiratory: Lung sounds are clear to auscultation. She has normal respiratory effort. Gastrointestinal: Abdomen is soft, nontender, nondistended. Bowel sounds positive. Extremities: The patient has no lower extremity edema. Patient able to move all 4 extremities at will. Neurological: Alert, awake, and oriented x3. No focal motor deficits noted. LABORATORY DATA: WBC 8.76, hemoglobin 11.5, hematocrit 33.9, platelet count 287,000, ANC 7.13. Sodium 128, calcium 8.6, magnesium 1.4, total bilirubin 1.03. RADIOLOGY: Brain MRI with contrast shows metastatic disease in the left insula and cerebellum. ASSESSMENT: 1. Medialstinal mass. 2. Brain metastasis. 3. Hyponatremia. 4. Deep venous thrombosis prophylaxis. 5. Nutrition and deconditioning. PLAN: The patient had her bronchoscopy today. We will await tissue biopsy. The patient's brain scan with contrast did reveal brain metastasis. We plan to do a CT of the abdomen on Thursday. We will continue to follow along. Please call us as needed for anything over the weekend. The patient will need to continue to get out of bed as she is able to. Please supply protein shakes to increase her protein and nutrition. Resume Lovenox when appropriate. Dictated by SANCHEZ Liu for Nito Renee MD cc: Nito Renee MD [facility]
[2019-09-16] MEDS: LIPITOR PO SCH ×2 (19:50→21:48)
[2019-09-17] MEDS: DUONEB (A & A) INH SCH ×3 (03:35→11:40)
--- NOTE | 2019-09-17 07:08 | Diag Imaging Result Doc PS360 ---
EXAM: CHEST-PORTABLE 09/17/2019 HISTORY: lung mass. post bronch/biopsy TECHNIQUE: AP portable at 0615 COMMENT: There is opacification of the right lower and middle lobes. There is volume loss on the right with shift of the mediastinum to the right. This was not the case on 09/12/2019. There may be some pleural fluid on the right. IMPRESSION: Atelectasis and/or pneumonia in the right middle and lower lobes. Electronically signed by Maximus Sanchez 09/17/2019 7:06 AM
[2019-09-17] MEDS: NS 1,000 ML IV SCH (07:18)
[2019-09-17 07:19] LABS: BASO# 0.01 X1000 (0.0-0.2); BASO% 0.1 % (0.0-0.8); EOS# 0.14 X1000 (0.0-0.7); EOS% 1.9 % (0.0-10.0); HEMATOCRIT 33.4 % (37.0-47.0); HEMOGLOBIN 11.3 g/dL (12.0-16.0); LYMPH# 1.01 X1000 (1.2-3.4); LYMPH% 14.1 % (20.5-51.1); MCHC 33.8 g/dL (33-37); MCV 85.9 FL (81-99); MONO% 8.4 % (1.7-9.3); MPV 10.4 FL (7.4-10.4); NEUT# 5.42 X1000 (1.4-6.5); NEUT% 75.5 % (42.2-75.2); PLT 279 X1000 (130-400); RBC 3.89 XMIL (4.2-5.4); RDW 14.3 % (11.5-14.5); WBC 7.18 X1000 (4.8-10.8)
[2019-09-17 07:46] VITALS: BP 149/72
[2019-09-17 07:55] LABS: AGAP 13; ALB/GLOB RATIO 1.6; ALBUMIN 3.4 g/dL (3.5-5.0); ALKALINE PHOSPHATASE 36 U/L (32-104); BUN 4 mg/dL (8-22); CALCIUM 8.7 mg/dL (8.8-10.2); CHLORIDE 94 mmol/L (98-107); COSMO 259; CREATININE 0.5 mg/dL (0.5-0.9); ESTIMATED GFR > 60; GLUCOSE 89 mg/dL (70-104); GOT 18 U/L (10-30); GPT 7 U/L (10-36); MAGNESIUM 1.4 mg/dL (1.5-2.7); POTASSIUM 3.6 mmol/L (3.5-5.1); SODIUM 131 mmol/L (136-145); TCO2 24 mmol/L (25-35); TOTAL BILIRUBIN 1.14 mg/dL (0.20-1.00); TOTAL PROTEIN 5.5 g/dL (6.3-8.3)
[2019-09-17] MEDS: LOFIBRA PO SCH (09:06)
[2019-09-17] MEDS: TOPROL XL PO SCH (09:07)
[2019-09-17] MEDS: MULTAQ PO SCH (09:07)
[2019-09-17] MEDS: LOVENOX SUBQ SCH (09:07)
[2019-09-17] MEDS: BUSPAR PO SCH (09:07)
[2019-09-17] MEDS: PRILOSEC PO SCH (09:07)
--- NOTE | 2019-09-17 20:56 | DISCHARGE SUMMARY ---
ADMISSION DATE: 09/13/2019 DISCHARGE DATE: 09/17/2019 DISCHARGE DIAGNOSES: 1. Mediastinal mass, likely malignancy with brain metastasis. 2. Hyponatremia. 3. Chronic obstructive pulmonary disease. 4. Paroxysmal atrial fibrillation. 5. Gastroesophageal reflux disease. 6. Hypertension. PROCEDURES PERFORMED: 1. Chest CT scan dated 09/13/2019 impression: Large posterior mediastinal mass. 2. Head CT scan dated 09/14/2019 impression: No hemorrhage; likely subacute left temporal infarct. 3. Brain MRI dated 09/15/2019 impression: Findings suspicious for metastatic lesion in the insular region of the left cerebellar hemisphere. 4. Echocardiogram dated 09/15/2019: Ejection fraction 58% with normal wall motion; no pericardial effusion; mild pulmonic insufficiency; normal right ventricular size and systolic function. 5. Bronchoscopy dated 09/16/2019 under general anesthesia. 6. Brain MRI dated 09/16/2019 with contrast impression: Metastatic disease in the left insula and cerebellum. CONSULTS: Hematology/Oncology Department, Dr. Renee; Surgery Department, Dr. Velasquez. HOSPITAL COURSE: A 69-year-old female with a past medical history of GERD, hiatal hernia and failed Vianca fundoplication; chronic atrial fibrillation but is sinus rhythm; COPD; hypertension; diabetes; chronic hyponatremia. Admitted back in 11/2017 because of the same reasons. She was sent from her primary care provider at that time and she also had hyposmolarity apparently. There is a possibility that this could be aggravated by her Celexa or her COPD. CT scan done showed a mediastinal mass and brain MRI showed metastasis at the level of the left insula and cerebellum. Oncology Department has been consulted. Dr. Velasquez did a bronchoscopy and he got some tissue so it can be sent to Pathology to find out what kind the cancer is. This patient recovered really good. Chest x-ray showed some mild atelectasis at the level of the right middle and lower lobes, but she was breathing fine and actually vital signs were stable. Today when I examined the patient she wanted to go home. We wanted to do a CT of the abdomen and pelvis with contrast to see if she has some more metastatic lesions on Thursday, but she rather preferred to do that as an outpatient. She really wanted to go home today. We notified the Hematology/Oncology Department, and they agree with that. I talked to the patient and to the that they need to call Dr. Renee's office this Thursday, in 2 days, to set up everything for her. They seemed to understand, and I repeated that multiple times. She was tolerating p.o. She has some weakness, but she refused to go to a rehab center. PHYSICAL EXAMINATION: Temperature 98.1 degrees, pulse 67, respiratory rate 18, blood pressure 149/72, oxygen saturation 99% on room air. HEENT: Head normocephalic, no trauma. PERRLA. Neck is supple. No JVD. No masses. Central trachea. Chest clear to auscultation. No wheezing. No rales. Abdomen is soft, nontender, nondistended. No hepatosplenomegaly. Extremities: No edema, no clubbing, no cyanosis. Neurological: The patient is awake. She is alert and oriented x3. She does have some generalized weakness but no focal deficits. LABORATORY DATA: WBC 7.1, hemoglobin 11.3, hematocrit 33.4, platelets 279,000. Sodium 131, potassium 3.6, chloride 94, bicarbonate 24, BUN 4, creatinine 0.5, calcium 8.7, magnesium 1.4, AST 18, ALT 7, albumin 3.4. DISCHARGE INSTRUCTIONS: She will be discharged on her home medications, and she will need to follow up with Hematology/Oncology Department. She will call this coming Thursday, in 2 days, to Dr. Renee's office on 09/19/2019. DISCHARGE MEDICATIONS: Eliquis 5 mg p.o. b.i.d.; aripiprazole 2 mg p.o. daily; aspirin 325 mg p.o. daily; Lipitor 40 mg p.o. at bedtime; Celexa 20 mg p.o. daily; Multaq 400 mg p.o. b.i.d.; fenofibrate 160 mg p.o. daily; Toprol-XL 25 mg p.o. daily; omeprazole 20 mg p.o. daily. Time discharging this patient and explaining to the patient and the family about all the results and followup was around 35 minutes. cc: MD CARITO Delacruz
--- NOTE | 2019-09-19 14:55 | Carotid Study ---
DATE: 09/15/2019 PROCEDURE PERFORMED: Bilateral duplex and color flow imaging of the carotid arteries performed using a GE Vivid E9 ultrasound system with a 9 L-D transducer. REFERRING PHYSICIAN: Dr. Golden. DEPUTY COURT: Emily Menjivar RVT. A 69-year-old female. INDICATIONS: CVA-stroke. FINDINGS: The velocities in centimeters per second of both carotid systems were reviewed. The right ICA/CCA ratio was 0.96, corresponding to percent stenosis of 0 to 39 percent. The left ICA/CCA ratio was 0.89, corresponding to percent stenosis of 0 to 39 percent. INTERPRETATION: Mild atherosclerotic disease of the distal common and internal carotid arteries bilaterally without evidence of a hemodynamically significant lesion in either carotid system. When compared to a previous study performed on 07/08/2018, there has been no progression of disease. cc: MD Hari Nix MD
== END 2019-09-17 14:22 | disposition home health service (06) | DRG 641 ==
LOC: ED 16:15 → EDIPHOLD 16:16 → SUATTDRO 16:16 → 3N 09-14 07:11
PROVIDERS: ATTEND Internal Medicine